=== PATIENT | male | born 1960 | race Hispanic/Latino ===

== ENCOUNTER 2024-12-29 14:19 | Emergency (ER) | payer BC, OTHER ==
[~2024-12-29] VITALS: Ht 172.7 cm; Wt 74.4 kg
[2024-12-29] MEDS: LIDOCAINE 4% ADH..PATCH TP STA (14:54)
[2024-12-29] MEDS: ketOROlac 15MG/ML VIAL (15MG/ML) IM STA (14:55)
[2024-12-29] MEDS: ORPHENADRINE 60MG/2ML IM STA (14:55)
[2024-12-29] MEDS: HYDROcodone/APAP 5/325 1 TAB TABLET PO STA (15:46)
[2024-12-29] MEDS ORDERED: KETO10TA2 PO (16:45)
[2024-12-29] MEDS ORDERED: METH100054 PO (16:45)
[2024-12-29] MEDS ORDERED: LIDO1ADH82 TP (16:45)
--- NOTE | 2024-12-29 16:46 | ERN ---
ED Note History of Present Illness Stated Complaint: BACK PAIN Chief Complaint: Other Problems Time Seen by MD: 14:24 Time Seen by Midlevel: 14:30 Dictation: 64-year-old male coming in with complaints of right lower buttocks pain radiating to the right leg onset in the morning. Denies any trauma. Patient says he thinks it is his sciatica. Denies any numbness, tingling, unilateral weakness, no saddle paresthesias. Patient states he took a Tylenol and this morning has not helped. Allergies: Coded Allergies: codeine (Unverified Allergy, Intermediate, NAUSEA VOMITING, 12/29/24) No Known Drug Allergies (Unverified Allergy, Unknown, 12/29/24) Past Medical History Past Medical History: No Pertinent History Surgical History: None Review of System Dictation Constitutional: Negative for fever,chills, and weight loss Eyes: Negative for injury, pain,redness, and discharge ENT: Negative for injury,pain or swelling Cardiovascular: Negative for chest pain, palpitations, and edema Respiratory: Negative for shortness of breath, cough, and wheezing, Abdomen/GI: Negative for abdominal pain, nausea, vomiting, diarrhea, and constipation Back: Negative for injury and pain : Negative for injury, bleeding and discharge MS/Extremity: Negative for injury and deformity, complaining of right lower back pain Skin: Negative for rash, and discoloration Neuro: Negative for headache, weakness, numbness, tingling, and seizure Psych: Negative for suicide ideation, homicidal ideation, and hallucinations Review of Systems: was completed Initial Vital Sign VS Vital Signs Date Time Temp Pulse Resp B/P (MAP) Pulse Ox O2 Delivery O2 Flow Rate FiO2 12/29/24 14:24 98.1 89 16 176/66 97 Room Air 0 12/29/24 14:49 21 Physical Exam Dictation General: awake, alert, NAD Head/Face: Normocephalic, atraumatic Eyes: PERRL, EOMI, vision at baseline ENT: oral cavity clear, TMs clear, no signs of infection Neck: Trachea midline, supple, no nuchal rigidity Cardiovascular: RRR, normal S1/S2, No MRGs, no JVD Respiratory: CTAB, no respiratory distress, No rales or wheezes Abdomen: Soft, non-tender, non-distended, normal bowel sounds, no guarding or rebound. Skin: Warm, dry, normal turgor, no rash MS/Extremity: Pulses equal, no cyanosis, neurovascular intact, FROM, complaining of pain to palpation to the right buttocks area that radiates to the right leg Neuro: COAx4, GCS 15, strength 5/5, CN 2-12 intact, normal cerebellar exam, normal gait, Psych: Normal behavior, mood, and affect normal ED Course ED Course Orders Procedure Category Date Status Time Orphenadrine Citrate PHA 12/29/24 Complete (Norflex) 14:35 Ketorolac PHA 12/29/24 Complete Tromethamine 15mg/Ml 14:35 Lidocaine (Lidocaine PHA 12/29/24 Complete Patch 4%) 14:35 Hydrocodone/Apap PHA 12/29/24 Complete 5/325 (Dragoon 5/325mg) 14:35 Current Medications Medications (Trade) Dose Ordered Sig/Fang Route PRN Reason Start Time Stop Time Status Last Admin Dose Admin Acetaminophen/ Hydrocodone Bitart (NORco 5/325MG) 1 tab ONCE STAT PO 12/29/24 14:35 12/29/24 14:37 DC 12/29/24 15:46 Ketorolac Tromethamine (toRADol) 15 mg ONCE STAT IM 12/29/24 14:35 12/29/24 14:37 DC 12/29/24 14:55 Lidocaine (Lidocaine Patch 4%) 1 each ONCE STAT TP 12/29/24 14:35 12/29/24 14:37 DC 12/29/24 14:54 Orphenadrine Citrate (Norflex) 60 mg ONCE STAT IM 12/29/24 14:35 12/29/24 14:37 DC 12/29/24 14:55 Vital Signs Date Time Temp Pulse Resp B/P (MAP) Pulse Ox O2 Delivery O2 Flow Rate FiO2 12/29/24 14:49 98.1 85 16 175/65 98 Room Air* 0 21 12/29/24 14:24 98.1 89 16 176/66 97 Room Air 0 Medical Decision Making MDM MDM: 64-year-old male coming in with complaints of right lower buttocks pain radiating to the right leg onset in the morning. Denies any trauma. Patient says he thinks it is his sciatica. Denies any numbness, tingling, unilateral weakness, no saddle paresthesias. Patient states he took a Tylenol and this morning has not helped. After multiple pain medications patient states he feels better able to walk around, states he still has pain but not as bad in his not immobile any longer. We will discharge patient with muscle relaxer and have patient follow up outpatient. Educated patient arrived has been when to return back to the ER. Patient verbalized understanding, answered all questions. Differential diagnosis: Sciatica, muscle spasm, Rationale: Tests considered and ordered secondary to shared decision making include: Previous outside records reviewed: Old ER visits. Risk of complication and/or morbidity or mortality of patient management: None Medications-Per medication reconciliation Need for hospitalization: Patient does not meet criteria for hospitalization. Need for emergency major/minor surgery: No There are no social concerns with this patient. Prescription drug management Prescriptions will include symptomatic care Patient's prior external medical records from other ER visits were reviewed by me as indicated. Prior testing and results from previous visits were reviewed. Prior tests were taken into account with medical decision making and resource utilization, independent historian/historians were used to obtain complete medical history. I independently interpreted the test that were performed, results were reviewed by me and considered findings on radiology if ordered. Medical management and examination interpretation discussions were had by me with other qualified healthcare professionals as indicated for the patient's care. DX & DISP Disposition: Discharge Departure Impression: Primary Impression: Back pain Condition: Stable Scripts Lidocaine (Lidocaine) 4 % Adh..patch 1 PATCH TP DAILY for 10 Days, #10 PATCH 0 Refills Prov: SAPNA FONG NP 12/29/24 Ketorolac Tromethamine (Ketorolac Tromethamine) 10 Mg Tablet 1 TAB PO Q6HPRN PRN for pain for 5 Days, #20 TAB 0 Refills Prov: SAPNA FONG NP 12/29/24 Methocarbamol (Methocarbamol) 1,000 Mg Tablet 1000 MG PO QID for 5 Days, #20 TAB Prov: SAPNA FONG NP 12/29/24 Referrals: STELLA OCONNOR MD (PCP) Time of Disposition: 16:37 I have reviewed the case, and I agree with, Diagnosis and Plan SAPNA FONG NP Dec 29, 2024 16:46
[2024-12-29 16:51] VITALS: BP 170/60; PULSE 80; RESP 16; TEMP 98.1; O2SAT 98
== END 2024-12-29 17:03 | disposition home or self-care (01) ==
LOC: EDH 14:19
DX: M54.50 Low back pain, unspecified (principal)
CPT/HCPCS: 99284; 96372 ×2; J1885; J2360